=== PATIENT | female | born 1955 | race Caucasian/White ===

== ENCOUNTER 2022-08-25 08:31 | Observation (INO) ==
--- NOTE | 2022-07-21 09:40 | PAT Medication Instructions ---
Medication Instructions Date of Service July 21, 2022 Home Medications Medication Instructions Recorded levothyroxine 50 mcg capsule 50 mcg PO DAILY #30 caps 05/05/22 levothyroxine 50 mcg capsule 50 mcg PO DAILY acetaminophen 325 mg capsule (Tylenol) 325 mg PO QID PRN Pain ibuprofen 200 mg capsule 200 mg PO Q6H PRN Pain rosuvastatin 10 mg tablet 10 mg PO DAILY ascorbic acid (vitamin C) 100 mg tablet (Vitamin C) 100 mg PO QAM Collagen Plus Vitamin C 1 cap PO QAM calcium 220 mg capsule 220 mg PO QAM multivitamin 1 tab PO QAM ASK your surgeon for instructions ibuprofen 200 mg capsule 200 mg PO Q6H PRN Pain STOP taking 2 weeks before surgery (or as soon as possible if surgery is within 2 weeks) Collagen Plus Vitamin C 1 cap PO QAM DO NOT take the morning of surgery ascorbic acid (vitamin C) 100 mg tablet (Vitamin C) 100 mg PO QAM calcium 220 mg capsule 220 mg PO QAM multivitamin 1 tab PO QAM Take morning of surgery With a small sip of water, OTHERWISE NOTHING TO EAT OR DRINK AFTER MIDNIGHT: levothyroxine 50 mcg capsule 50 mcg PO DAILY acetaminophen 325 mg capsule (Tylenol) 325 mg PO QID PRN Pain (if needed) rosuvastatin 10 mg tablet 10 mg PO DAILY Take evening before surgery acetaminophen 325 mg capsule (Tylenol) 325 mg PO QID PRN Pain (if needed) Other Notes If you have any questions please call us at [phone] or [phone] or [phone] or [phone]
--- NOTE | 2022-07-23 14:12 | Anesthesiology Consultation ---
Date of Service July 23, 2022 Assessment & Plan (1) Encounter for pre-operative examination: - COVID screening: Per assessment on 07/23: No known COVID-19 positive contacts. Travel screen negative. At surgeon discretion if preop Covid testing being done. - Outpatient joint assessment: Pt currently scheduled for inpatient pathway. If surgeon requests review for outpatient joint pathway, patient is an acceptable candidate for outpatient joint program from anesthesia standpoint pending surgeon's office assessment that patient is motivated, has good support and completes [facility] Program preop requirements. Chart Review Chart Review: Acceptable Risk for Surgery and Patient seen in Pre Admission Testing History Surgery Operation Date: 08/25/22 07:30 Proposed Procedures p Left Total Knee Arthroplasty - Onesimo Yee, Height/Weight Height: 5 ft 3 in Weight: 73.2 kg Allergies Allergy/AdvReac Type Severity Reaction Status Date / Time Penicillins Allergy Intermediate RASH Verified 07/17/22 11:16 Medications Home Medications Medication Instructions Recorded Confirmed Last Taken levothyroxine 50 mcg capsule 50 mcg PO DAILY #30 caps 05/05/22 07/17/22 Unknown acetaminophen 325 mg capsule 325 mg PO QID PRN Pain 07/10/22 07/17/22 Unknown (Tylenol) ibuprofen 200 mg capsule 200 mg PO Q6H PRN Pain 07/10/22 07/17/22 Unknown rosuvastatin 10 mg tablet 10 mg PO DAILY 07/10/22 07/17/22 Unknown ascorbic acid (vitamin C) 100 mg 100 mg PO QAM 07/17/22 07/17/22 Unknown tablet (Vitamin C) ascorbic acid 125 mg-collagen, 1 cap PO QAM 07/17/22 07/17/22 Unknown hydrolyzed 740 mg capsule (Collagen Plus Vitamin C) calcium 220 mg capsule 220 mg PO QAM 07/17/22 07/17/22 Unknown multivitamin 1 tab PO QAM 07/17/22 07/17/22 Unknown Past Medical History Medical History Familial tremor faint; right hand History of COVID-19 04/2021- cough, fever, fatigue, congestion > resolved History of frequent URI No recent issues Hyperlipidemia Hypothyroidism Osteoarthritis of left knee Exercise / Class Metabolic Activity II 4-5 Yardwork/Stairs/Walk up hill Past Family History Family History Other No family history of adverse response to anesthesia Past Surgical History Surgical History History of Hx of cholecystectomy Hx of colonoscopy Hx of tubal ligation Past Anesthesia History No Family Hx of Anesthesia Complications and Other (left > right sided pain with ()) History of PONV No Hx of PONV and Hx of Motion Sickness (rare) Social History Smoking Status: Never smoker Do You Dip or Chew Tobacco: No Hx Alcohol Use: No Hx Substance Use: No substance use type: does not use Review of Systems Chronic sinus drainage- unchanged. Patient denies chest pain, shortness of breath, dyspnea on exertion, fever, chills, cough, wheezing, palpitations. Physical Exam Vital Signs VITALS BP 106/58 P 98 TEMP 99.1 SP02 96%RA RESP 16 PHYSICAL Full cervical extension range of motion. Full TMJ range of motion. TMD 3 finger breaths Mallampati Score 2 Dentition: intact Lungs: clear throughout to auscultation Cardiac: regular rate and rhythm, no murmurs noted Spine: normal Carotid arteries: negative bruit Extremities: no edema Lab Results Anesthesia Preop Results Results Anesthesia Widget: WBC 6.66 K/ul (4.8-10.8) 07/23/22 Hgb 16.8 g/dl (12.0-16.0) H 07/23/22 Hct 46.3 % (34.1-44.9) H 07/23/22 Plt 310 K/uL (130-400) 07/23/22 Na 140 mmol/L (136-145) 07/23/22 K 4.0 mmol/L (3.5-5.1) 07/23/22 Cl 107 mmol/L (98-107) 07/23/22 CO2 29 mmol/L (21-32) 07/23/22 BUN 12 mg/dl (6-23) 07/23/22 Creat 0.69 mg/dl (0.6-1.2) 07/23/22 Glucose Level 102 mg/dl (70-99(Fasting)) H 07/23/22 PT 10.6 Seconds (9.0-12.0) 07/23/22 PTT 25.4 Seconds (21.0-31.0) 07/23/22 INR 1.0 (0.9-1.1) 07/23/22 Blood Type O Positive 07/23/22 Antibody Screen NEGATIVE 07/23/22 Testing Electrocardiogram Date: 07/23/22 Findings: + NSR @ (76) Chest X-Ray Date: 07/23/22 FINDINGS: No lines and tubes are seen. The cardiomediastinal silhouette is normal. The lungs are clear. No evidence of pleural effusion or pneumothorax. Degenerative changes are seen in the spine. IMPRESSION: No acute chest disease. Stress Test Date: 11/15/18 Type: exercise Negative exercise stress echo/ECG for ischemia at 106% MPHR. Poor exercise tolerance. 4.7 METS. EchoEF 65-70%. No regional motion abnormality. No LVH. No significant valvular disease. COVID-19 Risk Screen Screening Information COVID-19 Screen Date: 07/23/22 Exposure 21 Days Family/Household +COVID Last 21 Days: No Exposure 10 Days Any COVID Exposure Last 10 Days: No Symptoms Last 10 Days Experienced COVID Sx Last 10 Days: No + COVID 0-90 Days COVID + in Last 0-90 Days: No
--- NOTE | 2022-08-25 06:28 | History & Physical Report ---
Date of Service August 25, 2022 Assessment & Plan (1) Osteoarthritis of left knee: We will proceed with a left total knee arthroplasty. Postoperatively she will be in our outpatient joint protocol. She will be discharged home on oral pain medications and aspirin for DVT prophylaxis. [facility]. History of Present Illness Chief Complaint: Osteoarthritis of the left knee. Primary Care Provider: YOANA Lira Kinjal is a pleasant 67-year-old female who is been doing with chronic increasing left knee pain. X-rays and clinical examination have been diagnostic for advanced osteoarthritis of the left knee. After failing conservative treatment, she has elected proceed with a left total knee arthroplasty.. Allergies Allergy/AdvReac Type Severity Reaction Status Date / Time Penicillins Allergy Intermediate RASH Verified 07/17/22 11:16 Home Medications Medication Instructions Recorded Confirmed Type levothyroxine 50 mcg capsule 50 mcg PO DAILY #30 caps 05/05/22 07/17/22 Rx acetaminophen 325 mg capsule 325 mg PO QID PRN Pain 07/10/22 07/17/22 History (Tylenol) ibuprofen 200 mg capsule 200 mg PO Q6H PRN Pain 07/10/22 07/17/22 History ascorbic acid (vitamin C) 100 mg 100 mg PO QAM 07/17/22 07/17/22 History tablet (Vitamin C) ascorbic acid 125 mg-collagen, 1 cap PO QAM 07/17/22 07/17/22 History hydrolyzed 740 mg capsule (Collagen Plus Vitamin C) calcium 220 mg capsule 220 mg PO QAM 07/17/22 07/17/22 History multivitamin 1 tab PO QAM 07/17/22 07/17/22 History rosuvastatin 10 mg tablet 10 mg PO DAILY #30 tabs 07/30/22 Rx Past Med/Surg History Medical History Familial tremor faint; right hand History of COVID-19 04/2021- cough, fever, fatigue, congestion > resolved History of frequent URI No recent issues Hyperlipidemia Hypothyroidism Osteoarthritis of left knee Surgical History History of Hx of cholecystectomy Hx of colonoscopy Hx of tubal ligation Family History Other No family history of adverse response to anesthesia Social History Smoking Status: Never smoker Second Hand Exposure: No; Hx Alcohol Use: No Hx Substance Use: No Preferred Language: American Communication Ability: Effective Visual Impairment: Limited Hearing Ability: Normal Data Storage Specialist Required: No Beliefs That Will Affect Care: None marital status: Current Living Situation: Spouse current occupational status: retired How many Children do You have: 5 Feels Safe at Home: Yes Childhood Exposure to Second-Hand Smoke: Yes caffeine: Yes during the past year weight has: remained stable Dental Care, Regularly: No Physical Activity Frequency: Daily Seatbelt Use: always Sunscreen Use: Yes Do you think of yourself as: straight/heterosexual Gender Identity: Female Assistive Devices: Glasses Review of Systems All systems reviewed & are unremarkable except as noted in HPI & below. Physical Exam On physical examination of the left knee, she has slight valgus deformity. She has tenderness palpation over the lateral joint line and over the distal lateral femoral condyle.. Constitutional WD/WN, vitals as above Eyes PERRL, conjunctivae normal, anicteric sclerae ENMT external ear and nose normal, oropharynx normal Neck trachea midline, no thyromegaly Respiratory normal respiratory effort, lungs clear to auscultation Cardiovascular RRR, no murmur, no edema Gastrointestinal (Abdomen) normal bowel sounds, soft, nontender, no hepatosplenomegaly Skin no rashes, warm and dry Psychiatric A+Ox3, euthymic affect Results & Data Results & Data Laboratory Results . Diagnostic Findings X-rays of the left knee show advanced osteoarthritis with some joint space narrowing and osteophyte formation. Most involved the lateral compartment.. PG Care Time/CCT Total # of Minutes Spent Total Time Spent with Patient: Total time spent is greater than 50% in coordination of care (as documented) at patient's floor/unit and/or counseling patient: Coding Level of Care Code None Diagnoses Osteoarthritis of left knee M17.12
[~2022-08-25 08:31] MED LIST: ACETAMINOPHEN 500 MG TAB PO SCH; ALLERGY Noted to ORDERED Medication SCH; BUPIVACAINE 0.5 % 5 MG/1 ML PF 10ML VIAL ONE; FAMOTIDINE 20 MG TAB PO SCH; GABAPENTIN 300 MG CAP PO SCH; Ketorolac (*for OR use only*) 30 MG, dexAMETHasone 4 MG, KETAMINE HCL (**OR use only) 1... INFIL SCH; LR 500ML BOLUS, THEN 15ML/HR IV SCH; LR 60ML/HR IV SCH; ROPIVACAINE 0.5% 5 MG/ML 30 ML VIAL ONE; TRANEXAMIC ACID 1,000 MG **IV Intra-op IV SCH; TRANEXAMIC ACID 1,000 MG **IV Pre-op IV SCH; ceFAZolin 2000MG 2,000 MG/15 ML SYR IV SCH; dexAMETHasone 4 MG TAB PO SCH
[2022-08-25] MEDS ORDERED: MIDAZOLAM HCL 1 MG/ML 2ML VIAL ONE (09:40)
[2022-08-25] MEDS ORDERED: PROPOFOL IV EMULSION 10 MG/ML 20 ML VIAL IV ONE ×2 (10:22)
[2022-08-25] MEDS ORDERED: ORTHO JOINT ANESTHETIC ONE (10:47)
[2022-08-25] MEDS ORDERED: ceFAZolin 2,000 MG/15 ML IV PUSH IV ONE (10:49)
[2022-08-25] MEDS ORDERED: fentaNYL citrate 100 MCG/2 ML VIAL IV PRN (10:51)
[2022-08-25] MEDS ORDERED: ePHEDrine sulfate 50 MG/ML AMP IV PRN (10:51)
[2022-08-25] MEDS ORDERED: ATROPINE SULFATE 0.1 MG/ML 10ML SYR IV PRN (10:51)
[2022-08-25] MEDS ORDERED: HYDROmorphone INJ 2 MG/ML SYR/VIAL IV PRN (10:51)
[2022-08-25] MEDS ORDERED: PROMETHAZINE HCL 12.5 MG in SODIUM CHLORIDE 0.9% 50 ML IV PRN (10:51)
[2022-08-25] MEDS ORDERED: ONDANSETRON INJ 2 MG/ML 2 ML VIAL IV PRN ×2 (10:51→13:34)
[2022-08-25] MEDS ORDERED: Nursing to Pharmacy Communication SCH (11:00)
[2022-08-25] MEDS ORDERED: ePHEDrine sulfate 50 MG/ML SYR ONE (12:06)
--- NOTE | 2022-08-25 12:14 | Operative Report ---
PG Post Operative Report Pre & Post Diagnosis Operation Date: 08/25/22 10:40 Pre-Op Diagnosis: Left Knee Degenerative Joint Disease Post-Op Diagnosis: Left Knee Degenerative Joint Disease I identified the patient and participated in the time-out.: Yes Procedure Operation Date: 08/25/22 10:40 Actual Procedures p Left Total Knee Arthroplasty, Cemented(Left) - Onesimo Yee DO Surgeon Onesimo Yee DO Refrigeration Lead Onesimo Livingston PA-C Estimated Blood Loss 50 Findings Consistent with Post-Op Diagnosis Specimens Left femoral and tibial bone Description of Procedure Implants used: I used a Ethan Persona total knee arthroplasty system with a size 7 standard PS femur, D tibia, 28 oval patella, and a size 10 CPS polyethylene bearing. All components were cemented in place with Biomet cement. Kinjal arrived [facility] for the above procedure. She was seen in the preoperative holding area and the operative extremity was identified and signed. She was given a preoperative antibiotic, TXA, a spinal anesthetic and an adductor nerve block. She was taken back to the operating room and laid on the table in supine position. She was given basic sedation. The operative knee was then prepped and draped in sterile fashion. A timeout was done, and the patient and the operative extremity was properly identified. A midline incision was made directly over the patella. Dissection was taken down to the extensor mechanism. A midvastus arthrotomy was used. The medial retinaculum was released and the fat pad was mostly excised. The knee was flexed and the ACL, PCL, and meniscus were removed. A drill was sent down the center of the femoral canal followed by an intramedullary carolin. Off that carolin a distal femoral cutting block was placed. 9 mm was resected off the distal femur at 5 of valgus. A posterior referencing AP sizing guide was then placed on the distal femur. The femur measured to be a size 7. 2 drill holes were placed in 3 of external rotation. A 4-in-1 cutting block was then impacted into place. Anterior, posterior, and chamfer cuts were then made. The proximal tibia was then exposed. An external tibial alignment guide was placed. A tibial cut guide was then anchored in place and the proximal tibia was then resected. The posterior aspect of the knee was then ope aleta up and any additional meniscus fragments and osteophytes were removed. The tibia measured to be a size D. The tibial plate was then placed in the appropriate rotation and the tibia was drilled and punched. Trial components were then placed. I used a size 10 CPS polyethylene insert. The knee was brought through a full range of motion and felt to be stable. The peg holes for the femoral component were then drilled. The patella was then everted and 9 mm was resected off the posterior aspect of the patella. The patella measured to be a size 28 oval. 3 peg holes were then drilled. A trial patella was placed. The knee was once again brought through a full range of motion and felt to be stable. Trial components were then removed. The surrounding soft tissues were injected with 100 cc of an orthopedic pain control cocktail. All components were then cemented into place with Biomet cement. The final polyethylene insert was then snapped into place. Once cement was dry the tourniquet was deflated. Hemostasis was obtained. A dilute betadyne lavage was then done for 3 minutes. The joint was then irrigated with normal saline solution. The midvastus arthrotomy was then closed with #1 Vicryl suture. The skin was closed with 2-0 Vicryl, 3-0V lock suture, and mendez. A soft compressive dressing was placed. She was then transferred to a hospital bed and taken to the postanesthesia care unit in stable condition. She tolerated the procedure well. Onesimo Livingston PA-C, was present for the entire procedure. He was critical for patient positioning, prepping, draping, retraction exposure, wound closure and application of sterile dressing. I attest to the content of the Intraoperative Record and any orders documented therein. Any exceptions are noted below.
[2022-08-25] MEDS ORDERED: oxyCODONE/ACETAMINOPHEN 5mg/325mg TAB PO PRN (12:38)
--- NOTE | 2022-08-25 12:58 | XRay Report ---
LEFT KNEE 2 VIEWS History: Left total knee arthroplasty. Degenerative arthritis. Postop. FINDINGS: The patient is status post a left total knee arthroplasty. The hardware is intact. No fract ure or dislocation. Skin mendez are in place. IMPRESSION: Left total knee arthroplasty. No evidence for hardware complication. ACT 112: Negative or not required by law. Electronically signed by: Tylor Oconnor M.D. 08/25/2022 12:57 PM
[2022-08-25] MEDS ORDERED: MAGNESIUM HYDROXIDE SUSP 30 ML UDC PO PRN (13:34)
[2022-08-25] MEDS ORDERED: HYDROmorphone INJ 0.5 MG/0.5 ML SYR IV PRN (13:34)
[2022-08-25] MEDS ORDERED: bisacodyL 10 MG SUPP PR PRN (13:34)
[2022-08-25] MEDS ORDERED: METOCLOPRAMIDE HCL INJ 5 MG/ML 2 ML VIAL IV PRN (13:34)
[2022-08-25] MEDS ORDERED: NALOXONE HCL 0.4 MG/1 ML VIAL/CARP IV PRN (13:34)
[2022-08-25] MEDS: SODIUM CHLORIDE 0.9% 1000ML 1,000 ML IV SCH (14:58)
[2022-08-25] MEDS: KETOROLAC 30 MG/ML VIAL IV SCH ×2 (14:59→20:50)
[2022-08-25] MEDS: ACETAMINOPHEN 500 MG TAB PO SCH ×2 (14:59→20:50)
[2022-08-25] MEDS: ceFAZolin 2000MG 2,000 MG/15 ML SYR IV SCH (18:18)
[2022-08-25] MEDS: ASPIRIN 81 MG ECTAB PO SCH (20:49)
[2022-08-25] MEDS: DOCUSATE SODIUM 100 MG CAP PO SCH (20:49)
[2022-08-25] MEDS ORDERED: SENNA 8.6 MG TAB PO SCH (21:00)
[2022-08-26] MEDS: oxyCODONE HCL IR 5 MG TAB (IMMEDIATE RELEASE) PO PRN ×2 (01:14→08:39)
[2022-08-26] MEDS: SODIUM CHLORIDE 0.9% 1000ML 1,000 ML IV SCH (01:20)
[2022-08-26] MEDS: KETOROLAC 30 MG/ML VIAL IV SCH ×2 (04:11→08:39)
[2022-08-26] MEDS: ceFAZolin 2000MG 2,000 MG/15 ML SYR IV SCH (04:11)
[2022-08-26] MEDS: ACETAMINOPHEN 500 MG TAB PO SCH (06:20)
--- NOTE | 2022-08-26 06:55 | Orthopedic Progress Note ---
Date of Service August 26, 2022 Assessment & Plan (1) Status post left knee replacement: Overall she is doing fairly well. She is not having much pain in the left knee. She will be seen by physical therapy today for ambulation and range of motion exercises. She is on aspirin for DVT prophylaxis. She can be discharged home later today. She will follow-up with orthopedics in 2 weeks. Sage Layton was seen and examined at bedside this morning. Overall she is doing fairly well. She is not having much pain in the left knee. She has been up and ambulating to the bathroom. She has no complaints.. Review of Systems All systems reviewed & are unremarkable except as noted in HPI & below. Physical Exam On physical examination of the left knee, the dressing is clean and dry. Her leg is out full extension. She has active dorsiflexion plantarflexion of her left ankle.. Results & Data Results & Data Laboratory Results . Diagnostic Findings Postoperative x-rays of the left knee show the prosthesis to be in anatomic alignment without any evidence of fracture, screws, or loosening.. PG Care Time/CCT Total # of Minutes Spent Total Time Spent with Patient: Total time spent is greater than 50% in coordination of care (as documented) at patient's floor/unit and/or counseling patient: Coding Level of Care Code 63937 Post Operative Follow-Up Diagnoses Status post left knee replacement Z96.652
--- NOTE | 2022-08-26 06:56 | Discharge Summary ---
Date of Service August 26, 2022 Admission HPI (Per Admitting) Kinjal is a pleasant 67-year-old female who is been doing with chronic increasing left knee pain. X-rays and clinical examination have been diagnostic for advanced osteoarthritis of the left knee. After failing conservative treatment, she has elected proceed with a left total knee arthroplasty.. Admission Exam (Per Admitting) On physical examination of the left knee, she has slight valgus deformity. She has tenderness palpation over the lateral joint line and over the distal lateral femoral condyle.. Principal Diagnosis Same as "Discharge Diagnosis" noted below under Discharge Instructions. Discharge Exam On physical examination of the left knee, the dressing is clean and dry. Her leg is out full extension. She has active dorsiflexion plantarflexion of her left ankle.. Discharge Data Procedures Performed Operation Date: 08/25/22 10:40 Actual Procedures p Left Total Knee Arthroplasty, Cemented(Left) - Onesimo Yee DO Ordered Studies 08/25/22 05:00 US - OR guided needle placemen Routine Hospital Course (1) Status post left knee replacement: On August 25, 2022 Kinjal arrived at [facility] and underwent a left knee replacement without complication. She had a spinal anesthetic. Postoperatively she was started on aspirin for DVT prophylaxis and transferred to the general orthopedic floors. Her hospital course was uneventful. On postop day #1, her vital signs were stable and her pain was well controlled. She was able to participate well with physical therapy doing ambulation and range of motion exercises. She was then discharged home. She will follow-up with orthopedics in 2 weeks. PG Care Time/CCT Total # of Minutes Spent Total Time Spent with Patient: Total time spent is greater than 50% in coordination of care (as documented) at patient's floor/unit and/or counseling patient: Discharge Plan Discharge Items Patient Disposition: Home - Home Health Services Reason For Visit: Left Knee Degenerative Joint Disease Discharge Diagnosis: same as above Activity: Per Instructions section Non-emergency contact: Surgeon Call non-emergency contact if: your temperature is above 101.5, your wound has increased redness and your wound has increased drainage Follow-up/Referrals: Marifer Altamirano CRNP [Primary Care Provider] - Diet: Regular Addtl Attending Provider Instructions: Activity and Therapy Recommendations: * If you are using [facility] then therapy will be provided at your home until they feel you have accomplished all of your goals. * If you are using [facility] then Physical Therapy will be provided until they feel you are ready to start Outpatient Physical Therapy. * If you are not using home therapy then Outpatient Physical Therapy should start about 3-5 days from your day of surgery. Therapy will last about 6-10 weeks * It is important not to put a pillow under your knee when you are relaxing or sleeping. It is just as important to make sure you are getting your knee perfectly straight as it is to regain your knee bend. * You were shown a series of exercises in the hospital. Do these exercises three times each day including the exercises you were shown in physical therapy. * Get up and walk several times each day. For the first four weeks, try not to stand or walk for more than one hour at a time. If you do stand or walk for more than one hour, you will not hurt anything, but your leg will likely swell. * As you feel comfortable, you may change from the walker or crutches to a cane and then to independent walking. Medications: * Narcotic You will likely be sent home from the hospital with a prescription for the narcotic pain medication that worked best throughout your stay. * Aspirin Most patients will be required to take Aspirin 81mg twice a day for 6 weeks after surgery. This is obtained [id number] and a prescription is not necessary. * Other medications may be prescribed for specific circumstances. If you have any questions, please call the office at . * Resume previous home medications unless otherwise instructed TEDs/Elastic Stockings: The white elastic stockings help limit swelling and prevent blood clots from forming in your legs.~ The more you wear them, the more they work. Wear them for six weeks. Dressing Care: The dressing can be changed after physical therapy on postop day #1. Daily dry dressing changes for a few days, especially if the incision is still draining some. If the incision is not draining then you may leave the mendez open to air. If there is a little bit of drainage or if the mendez are getting stuck on your clothing then cover the incision with a dry dressing. The mendez will be removed at your 2 week follow-up appointment. Showering: You may shower 5 days from the day of surgery as long as the incision is no longer draining. You may shower with the mendez exposed. Let soapy water run over the mendez and pat them dry. Do not scrub or soak the incision. Things To Watch For: * Drainage from the incision site that occurs more than one week after your surgery. * Increased redness at the incision site. * Fever above 102 degrees Fahrenheit. * Unusual chest pain or shortness of breath. * Call [facility] at with any of the above problems Follow-Up Visit: Follow-up with Dr. Yee's PA (Onesimo Livingston) 2-3 weeks after your day of surgery. He will remove your mendez and answer any questions. If you have any additional questions or concerns, Dr Yee is usually in the office at the same time and will be available An appointment was probably scheduled when you signed-up for surgery in the office. If you have any questions call Office Instructions: More detailed instructions as well as Frequently Asked Questions were provided in a folder by our office when you signed-up for surgery. Please review these instructions when you get home. If you have any further questions or concerns, please feel free to call the office at [phone] Pending Studies at Discharge: No Stand-Alone Forms: [facility] [employer], Smoking Cessation Medications and DC Order Prescriptions: New celecoxib [Celebrex] 200 mg capsule 200 mg PO Q12H PRN (Reason: pain) Qty: 60 0RF oxycodone-acetaminophen [Percocet] 5-325 mg tablet 1 tab PO Q6H PRN (Reason: pain) Qty: 30 0RF aspirin [Adult Aspirin Regimen] 81 mg tablet,delayed release (DR/EC) 81 mg PO BID Qty: 84 0RF Continued levothyroxine 50 mcg capsule 50 mcg PO DAILY Qty: 30 11RF rosuvastatin 10 mg tablet 10 mg PO DAILY Qty: 30 5RF multivitamin Tablet 1 tab PO QAM Vitamin C 100 mg Tablet 100 mg PO QAM calcium 220 mg Capsule 220 mg PO QAM Collagen Plus Vitamin C 125-740 mg Capsule 1 cap PO QAM Discontinued acetaminophen [Tylenol] 325 mg capsule 325 mg PO QID PRN (Reason: Pain) ibuprofen 200 mg capsule 200 mg PO Q6H PRN (Reason: Pain) Admission Data Admit Date/Time: 08/25/22 12:52 Attending Provider: Onesimo Yee Admit Provider: Onesimo Yee Primary Care Provider: Marifer Altamirano
[2022-08-26] MEDS ORDERED: dexAMETHasone 4 MG TAB PO SCH (08:00)
[2022-08-26] MEDS: ASPIRIN 81 MG ECTAB PO SCH (08:39)
[2022-08-26] MEDS: DOCUSATE SODIUM 100 MG CAP PO SCH (08:39)
[2022-08-26] MEDS ORDERED: ROSUVASTATIN CALCIUM 10 MG TAB PO SCH (09:00)
[2022-08-26] MEDS ORDERED: MULTIVITAMIN TAB PO SCH (09:00)
== END 2022-08-26 13:40 | disposition home health service (06) ==
LOC: 3W 08:31 → ASU 08:31

== ENCOUNTER 2023-02-06 08:34 | Observation (INO) ==
--- NOTE | 2023-01-09 11:00 | PAT Medication Instructions ---
Medication Instructions Date of Service January 09, 2023 Home Medications ascorbic acid (vitamin C) 100 mg tablet (Vitamin C) 100 mg PO QAM ascorbic acid 125 mg-collagen, hydrolyzed 740 mg capsule (Collagen Plus Vitamin C) 1 cap PO QAM calcium 220 mg capsule 220 mg PO QAM multivitamin 1 tab PO QAM levothyroxine 50 mcg capsule 50 mcg PO QAM rosuvastatin 10 mg tablet 10 mg PO HS DO NOT take the morning of surgery ascorbic acid (vitamin C) 100 mg tablet (Vitamin C) 100 mg PO QAM ascorbic acid 125 mg-collagen, hydrolyzed 740 mg capsule (Collagen Plus Vitamin C) 1 cap PO QAM calcium 220 mg capsule 220 mg PO QAM multivitamin 1 tab PO QAM Take morning of surgery With a small sip of water, OTHERWISE NOTHING TO EAT OR DRINK AFTER MIDNIGHT: levothyroxine 50 mcg capsule 50 mcg PO QAM Take evening before surgery rosuvastatin 10 mg tablet 10 mg PO HS Other Notes If you have any questions please call us at [phone] or [phone] or [phone] or [phone]
--- NOTE | 2023-01-14 12:56 | Anesthesiology Consultation ---
Date of Service January 14, 2023 Assessment & Plan (1) Encounter for pre-operative examination: - COVID screening: Per assessment on 01/14: No known COVID-19 positive contacts or current COVID-19 related symptoms. Travel screen- return from [place], [place] on 01/11. - Outpatient joint assessment: Pt currently scheduled for inpatient pathway. If surgeon requests review for outpatient joint pathway, patient is an acceptable candidate for outpatient joint program from anesthesia standpoint. - S/P Left TKA (08/25/22): SAB at L3/4 (x1 attempt) + PNB at [facility] Chart Review Chart Review: Acceptable Risk for Surgery and Patient seen in Pre Admission Testing Teaching & Discussion Pre-Anesthesia Teaching/Discussion Notes: Instructed NPO after midnight before surgery,except medications with 15 cc of water. Medication instructions provided according to the PAT guidelines. History Surgery Operation Date: 02/06/23 08:10 Proposed Procedures p Right Reverse Total Shoulder Arthroplasty - Onesimo Yee DO Height/Weight Height: 5 ft 3 in Weight: 73.4 kg Allergies Allergy/AdvReac Type Severity Reaction Status Date / Time Penicillins Allergy Intermediate Rash Verified 01/14/23 12:56 Medications Home Medications Medication Instructions Recorded Confirmed Last Taken ascorbic acid (vitamin C) 100 mg 100 mg PO QAM 07/17/22 01/06/23 08/23/22 tablet (Vitamin C) ascorbic acid 125 mg-collagen, 1 cap PO QAM 07/17/22 01/06/23 08/11/22 hydrolyzed 740 mg capsule (Collagen Plus Vitamin C) calcium 220 mg capsule 220 mg PO QAM 07/17/22 01/06/23 08/18/22 multivitamin 1 tab PO QAM 07/17/22 01/06/23 08/23/22 levothyroxine 50 mcg capsule 50 mcg PO QAM 01/06/23 01/06/23 Unknown rosuvastatin 10 mg tablet 10 mg PO HS 01/06/23 01/06/23 Unknown doxycycline monohydrate 100 mg 100 mg PO ONCE #1 cap 01/12/23 Unknown capsule Past Medical History Medical History Familial tremor faint; right hand History of COVID-19 04/2021- cough, fever, fatigue, congestion > resolved Hyperlipidemia Hypothyroidism Exercise / Class Metabolic Activity II 4-5 Yardwork/Stairs/Walk up hill Past Family History Family History Other No family history of adverse response to anesthesia Past Surgical History Surgical History History of Hx of cholecystectomy Hx of colonoscopy Hx of tubal ligation Status post left knee replacement Left TKA (08/25/22): SAB at L3/4 (x1 attempt) + PNB at [facility] Past Anesthesia History No Hx of Anesthesia Complications and No Family Hx of Anesthesia Complications History of PONV No Hx of PONV and No Hx of Motion Sickness Social History Smoking Status: Never smoker Do You Dip or Chew Tobacco: No Hx Alcohol Use: No Hx Substance Use: No substance use type: does not use Review of Systems Chronic cough (Post nasal drip/allergy related, unchanged) Patient denies chest pain, shortness of breath, dyspnea on exertion, fever, chills, wheezing, palpitations. Physical Exam Vital Signs VITALS BP 114/71 P 72 TEMP 98.2 SP02 97%RA RESP 18 PHYSICAL Full cervical extension range of motion. Full TMJ range of motion. TMD 4 finger breaths Mallampati Score 1 Dentition: intact, + cap Lungs: clear throughout to auscultation Cardiac: regular rate and rhythm, no murmurs noted Spine: normal Carotid arteries: negative bruit Extremities: no LE edema Lab Results Anesthesia Preop Results Results Anesthesia Widget: WBC 4.01 K/ul (4.8-10.8) L 01/14/23 Hgb 15.1 g/dl (12.0-16.0) 01/14/23 Hct 42.9 % (37.0-47.0) 01/14/23 Plt 255 K/uL (130-400) 01/14/23 Na 140 mmol/L (136-145) 01/14/23 K 4.2 mmol/L (3.5-5.1) 01/14/23 Cl 104 mmol/L (98-107) 01/14/23 CO2 31 mmol/L (21-32) 01/14/23 BUN 11 mg/dl (6-23) 01/14/23 Creat 0.76 mg/dl (0.6-1.2) 01/14/23 Glucose Level 82 mg/dl (70-99(Fasting)) 01/14/23 PT 10.3 Seconds (9.0-12.0) 01/14/23 PTT 26.3 Seconds (21.0-31.0) 01/14/23 INR 0.9 (0.9-1.1) 01/14/23 Blood Type O Positive 01/14/23 Antibody Screen NEGATIVE 01/14/23 Testing Electrocardiogram Date: 07/23/22 Findings: + NSR @ (76) Chest X-Ray Date: 07/23/22 FINDINGS: No lines and tubes are seen. The cardiomediastinal silhouette is normal. The lungs are clear. No evidence of pleural effusion or pneumothorax. Degenerative changes are seen in the spine. IMPRESSION: No acute chest disease. Stress Test Date: 11/15/18 Type: exercise Negative exercise stress echo/ECG for ischemia at 106% MPHR. Poor exercise tolerance. 4.7 METS. EchoEF 65-70%. No regional motion abnormality. No LVH. No significant valvular disease. COVID-19 Risk Screen Screening Information COVID-19 Screen Date: 01/14/23 Exposure 21 Days Family/Household +COVID Last 21 Days: No Exposure 10 Days Any COVID Exposure Last 10 Days: No Symptoms Last 10 Days Experienced COVID Sx Last 10 Days: No + COVID 0-90 Days COVID + in Last 0-90 Days: No
[~2023-02-06 08:34] MED LIST changes: -ALLERGY Noted to ORDERED Medication SCH; -Ketorolac (*for OR use only*) 30 MG, dexAMETHasone 4 MG, KETAMINE HCL (**OR use only) 1... INFIL SCH; +LR 15ML/HR IV SCH; -LR 500ML BOLUS, THEN 15ML/HR IV SCH; +ORTHO JOINT MIX INFIL SCH; -ROPIVACAINE 0.5% 5 MG/ML 30 ML VIAL ONE
[2023-02-06] MEDS ORDERED: fentaNYL citrate PF 100 MCG/2 ML VIAL ONE ×2 (09:02→11:08)
[2023-02-06] MEDS ORDERED: ONDANSETRON INJ 2 MG/ML 2 ML VIAL ONE (09:02)
[2023-02-06] MEDS ORDERED: PROPOFOL IV EMULSION 10 MG/ML 20 ML VIAL IV ONE ×2 (09:02→11:06)
[2023-02-06] MEDS ORDERED: MIDAZOLAM HCL 1 MG/ML 2ML VIAL ONE (09:02)
[2023-02-06] MEDS ORDERED: LIDOCAINE 2% 2 ML VIAL/AMP(20MG/ML) INFIL ONE (09:02)
[2023-02-06] MEDS ORDERED: DEXAMETHASONE SOD INJ 4 MG/ML VIAL ONE (09:02)
[2023-02-06] MEDS ORDERED: ORTHO JOINT ANESTHETIC ONE (09:22)
--- NOTE | 2023-02-06 10:04 | History & Physical Bridge Note ---
Date of Service February 06, 2023 History & Physical Bridge Note I have examined the patient, reviewed the History & Physical and in the interval since the performance of the History & Physical I have noted the following changes of clinical significance: no changes noted
[2023-02-06] MEDS ORDERED: ePHEDrine sulfate 50 MG/ML AMP ONE (10:36)
--- NOTE | 2023-02-06 11:19 | Operative Report ---
PG Post Operative Report Pre & Post Diagnosis Operation Date: 02/06/23 10:00 Pre-Op Diagnosis: Cuff tear arthropathy of the right shoulder Post-Op Diagnosis: Cuff tear arthropathy of the right shoulder I identified the patient and participated in the time-out.: Yes Procedure Operation Date: 02/06/23 10:00 Actual Procedures p Right Reverse Total Shoulder Arthroplasty(Right) - Onesimo Yee DO Surgeon Onesimo Yee DO Corporate Legal Secretary Onesimo Livingston PA-C Estimated Blood Loss 200 Findings Consistent with Post-Op Diagnosis Specimens none Description of Procedure Implants used: I used a [employer]omet Comprehensive reverse total shoulder arthroplasty system with a size 11 press fit micro humeral stem, a +6 offset humeral tray and a standard humeral bearing, a 25 mm small augment baseplate with a 6.5 mm central screw and superior and inferior locking screws, and a size 36 mm eccentric glenosphere. Kinjal arrived at [facility] for the above procedure. She was seen in the preoperative holding area and the operative extremity was identified and signed. She was given a preoperative antibiotic, TXA, and an interscalene nerve block. She was taken back to the operating room, laid on table in supine position, and put under general anesthesia. She was then put into the beachchair position. The shoulder was then prepped and draped in sterile fashion. A timeout was done and the patient and the operative extremity was properly identified. A deltopectoral approach was used. Dissection was taken down through the fascia and the deltoid was retracted laterally and the conjoined tendon was retracted medially. The anterior shoulder was exposed. The biceps tendon was already torn. The subscapularis was then directly released off the lesser tuberosity with a peel technique. The inferior capsule was released and the humeral head was dislocated. A canal finding reamer was sent down the center of the humeral canal. Sequential reaming up to a size 11 reamer was done. Off that reamer, a proximal humeral resection guide was placed. The proximal humerus was resected at 135 of inclination and 25 of retroversion. Osteophytes were then removed and the glenoid was exposed. Time was spent doing a complete capsular and labral release. The glenoid guide was then placed in the inferior aspect of the glenoid. A 3.2 mm Steinmann pin was then placed into the glenoid vault at 10 of inclination. The glenoid baseplate was then reamed. The final size 25 mm small augment baseplate was then impacted in the place. A 6.5 mm central screw was then placed followed by superior and inferior locking screws. A 36 mm eccentric glenosphere was then impacted into place. Surrounding soft tissues were then injected with 100 cc an orthopedic pain control cocktail. The proximal humerus was then exposed. Sequential broaching of the humerus up to a size 11 broach was done. Off that broach a +6 offset humeral tray was trialed. The shoulder was then reduced, brought through a full range of motion, and felt to be stable. The shoulder was then dislocated and the broach was removed. The final size 11 micro press-fit humeral stem was then impacted into place. A standard humeral bearing was then snapped onto a +6 offset humeral tray. The humeral tray was then impacted onto the humeral stem. The shoulder was once again reduced, brought through a full range of motion, and felt to be stable. Subscapularis was chronically retracted and unable to be repaired. Surgiphor Betadine soak was used throughout the case. Hemostasis was obtained. The interval was closed with 2-0 Vicryl suture. The skin was then closed with 2-0 Vicryl and mendez. A Silverlon dressing was placed and the arm was rested in a regular arm sling. She was then extubated and transferred to a hospital bed. She taken to the postanesthesia care unit in stable condition. She tolerated the procedure well. Onesimo Livingston PA-C, was present for the entire procedure. He was critical for patient positioning, prepping, draping, retraction exposure, wound closure and application of sterile dressing. I attest to the content of the Intraoperative Record and any orders documented therein. Any exceptions are noted below.
--- NOTE | 2023-02-06 12:00 | Anesthesiology Progress Note ---
Date of Service February 06, 2023 Anesthesia Post Procedure Vital Signs Vital Signs: Temp Pulse Resp BP Pulse Ox O2 Del Method O2 Flow Rate 02/06/23 11:55 80 16 122/78 94 Room Air 02/06/23 11:45 76 21 115/68 96 Oxymask 6 02/06/23 11:35 36 C L 97 H 16 131/81 98 Oxymask 6 02/06/23 09:30 36.9 C 69 20 126/80 98 Room Air Pain Intensity Right Shoulder: Pain Intensity: 2 Transfer of Care Handoff Completed per policy Notes Mental Status: alert / awake / arousable and participated in evaluation Patient Amnestic to Procedure: Yes Nausea / Vomiting: improving with treatment Pain: adequately controlled and improving with treatment Airway Patency, RR, SpO2: stable & adequate BP & HR: stable & adequate Hydration State: stable & adequate Anesthetic Complications: no major complications apparent and Pt Satisfied with anesthetic care Notes: Pt interscalene block is functioning well. Arm in sling
--- NOTE | 2023-02-06 12:07 | XRay Report ---
XR shoulder RT min 2V routine CLINICAL HISTORY: Post shoulder surgery TECHNIQUE: 2 views of the right shoulder were obtained. Comparison: None available at the time of this dictation. FINDINGS: Patient is status post shoulder arthroplasty with expected postsurgical changes including soft tissue swelling and subcutaneous emphysema. No periarticular lucency or hardware fracture is seen. IMPRESSION: Expected postoperative appearance status post placement of shoulder arthroplasty. ACT 112: Negative or not required by law. Electronically signed by: Tin Box M.D. 02/06/2023 12:05 PM
[2023-02-06] MEDS ORDERED: ONDANSETRON INJ 2 MG/ML 2 ML VIAL IV PRN (13:30)
[2023-02-06] MEDS ORDERED: NALOXONE HCL 0.4 MG/1 ML VIAL/CARP IV PRN (13:30)
[2023-02-06] MEDS ORDERED: oxyCODONE HCL IR 5 MG TAB (IMMEDIATE RELEASE) PO PRN (13:30)
[2023-02-06] MEDS ORDERED: MAGNESIUM HYDROXIDE SUSP 30 ML UDC PO PRN (13:30)
[2023-02-06] MEDS ORDERED: bisacodyL 10 MG SUPP PR PRN (13:30)
[2023-02-06] MEDS ORDERED: METOCLOPRAMIDE HCL INJ 5 MG/ML 2 ML VIAL IV PRN (13:30)
[2023-02-06] MEDS ORDERED: HYDROmorphone INJ 0.5 MG/0.5 ML SYR IV PRN (13:30)
[2023-02-06] MEDS: SODIUM CHLORIDE 0.9% 1000ML 1,000 ML IV SCH ×2 (13:50→23:22)
[2023-02-06] MEDS: ACETAMINOPHEN 500 MG TAB PO SCH ×2 (14:30→21:20)
[2023-02-06] MEDS: KETOROLAC TROMETHAMINE 15 MG/ML VIAL IV SCH ×2 (14:30→18:13)
[2023-02-06] MEDS: ceFAZolin 2000MG 2,000 MG/15 ML SYR IV SCH (18:13)
[2023-02-06] MEDS: DOCUSATE SODIUM 100 MG CAP PO SCH (19:58)
[2023-02-06] MEDS ORDERED: SENNA 8.6 MG TAB PO SCH (21:00)
[2023-02-06] MEDS ORDERED: ROSUVASTATIN CALCIUM 10 MG TAB PO SCH (21:00)
[2023-02-07] MEDS: KETOROLAC TROMETHAMINE 15 MG/ML VIAL IV SCH ×2 (00:43→05:58)
[2023-02-07] MEDS: ceFAZolin 2000MG 2,000 MG/15 ML SYR IV SCH (02:28)
[2023-02-07] MEDS: ACETAMINOPHEN 500 MG TAB PO SCH (05:58)
[2023-02-07] MEDS ORDERED: LEVOTHYROXINE SODIUM 50 MCG TABLET PO SCH (06:30)
[2023-02-07] MEDS ORDERED: dexAMETHasone 4 MG TAB PO SCH (08:00)
[2023-02-07] MEDS: DOCUSATE SODIUM 100 MG CAP PO SCH (08:03)
--- NOTE | 2023-02-07 08:44 | Orthopedic Progress Note ---
Date of Service February 07, 2023 Assessment & Plan (1) Status post reverse total replacement of right shoulder: Overall she is doing very well. She is not having much pain in the right shoulder. She will be seen by physical therapy today for ambulation and range of motion exercises. She can be discharged home later today. She will follow- up with orthopedics in 2 weeks. Sage Layton was seen and examined at bedside this morning. Overall she is doing very well. She is not having much pain in the right shoulder. She was able to get some sleep last night. She has no complaints.. Review of Systems All systems reviewed & are unremarkable except as noted in HPI & below. Physical Exam On physical examination of the right shoulder, the dressing is clean and dry. She is wearing her sling as instructed. The nerve block is still in effect.. Results & Data Results & Data Laboratory Results . Diagnostic Findings Postoperative x-rays of the right shoulder show the prosthesis to be in anatomic alignment without any evidence of fracture, dislocation, or loosening.. PG Care Time/CCT Total # of Minutes Spent Total Time Spent with Patient: Total time spent is greater than 50% in coordination of care (as documented) at patient's floor/unit and/or counseling patient: Coding Level of Care Code 44685 Post Operative Follow-Up Diagnoses Status post reverse total replacement of right shoulder Z96.611
--- NOTE | 2023-02-07 08:45 | Discharge Summary ---
Date of Service February 07, 2023 Principal Diagnosis Same as "Discharge Diagnosis" noted below under Discharge Instructions. Discharge Exam On physical examination of the right shoulder, the dressing is clean and dry. She is wearing her sling as instructed. The nerve block is still in effect.. Discharge Data Procedures Performed Operation Date: 02/06/23 10:00 Actual Procedures p Right Reverse Total Shoulder Arthroplasty(Right) - Onesimo Yee DO Ordered Studies 02/06/23 05:00 US - OR guided needle placemen Routine Hospital Course (1) Status post reverse total replacement of right shoulder: On February 06, 2023 Kinjal arrived at [facility] and underwent a right reverse shoulder replacement without complication. She had a general anesthetic and a right interscalene nerve block. Postoperatively she was placed in a sling and transferred to the general orthopedic floors. Her hospital course was uneventful. On postop day #1, her vital signs were stable and her pain was well controlled. She was able to participate well with physical therapy doing ambulation and range of motion exercises. She was then discharged home. She will follow-up with orthopedics in 2 weeks. PG Care Time/CCT Total # of Minutes Spent Total Time Spent with Patient: Total time spent is greater than 50% in coordination of care (as documented) at patient's floor/unit and/or counseling patient: Discharge Plan Discharge Items Patient Disposition: Home - Home Health Services Reason For Visit: DJD Right Shoulder Discharge Diagnosis: Right reverse shoulder replacement Activity: As commented below Non-emergency contact: Surgeon Call non-emergency contact if: your wound has increased redness and your wound has increased drainage Follow-up/Referrals: Marifer Altamirano CRNP [Primary Care Provider] - Diet: Regular Addtl Attending Provider Instructions: Activity and Therapy Recommendations: * If you are using [facility] then therapy will be provided at your home until they feel you have accomplished all of your goals. * If you are using [facility] then Physical Therapy will be provided until they feel you are ready to start Outpatient Physical Therapy. * If you are not using home therapy then Outpatient Physical Therapy should start about 3-5 days from your day of surgery. Therapy will last about 8-12 weeks * Wear your sling for 3 weeks, unless otherwise instructed. You may remove your sling to shower and to dress, but otherwise, you should be in your sling at all times, including while sleeping * The shoulder replacement is very stable and you can use your hand while in the sling * You were shown a series of exercises in the hospital. Do these exercises daily including the exercises you were shown in physical therapy. Medications: * Narcotic You will likely be sent home from the hospital with a prescription for the narcotic pain medication that worked best throughout your stay. * Other medications may be prescribed for specific circumstances. If you have any questions, please call the office at . * Resume previous home medications unless otherwise instructed Dressing Care: Leave the Silverlon dressing in place for 7 days. After 7 days you may remove t he dressing. If the incision is not draining then you may leave the mendez open to air. If there is a little bit of drainage or if the mendez are getting stuck on your clothing then cover the incision with a dry dressing. The mendez will be removed at your 2 week follow-up appointment. Showering: You may shower with the Silverlon dressing in place. Do not let the shower spray hit the dressing directly. Pat the Silverlon dressing dry. If the dressing becomes wet underneath, then simply remove the dressing. Keep the incision dry until you are 7 days out from the day of surgery. After 7 days you may remove the Silverlon dressing and shower with the mendez exposed. Let soapy water run over the mendez and pat them dry. Do not scrub or soak the incision. Things To Watch For: * Drainage from the incision site that occurs more than one week after your surgery. * Increased redness at the incision site. * Fever above 102 degrees Fahrenheit. * Unusual chest pain or shortness of breath. * Call [facility] at with any of the above problems Follow-Up Visit: Follow-up with Dr. Yee's PA (Onesimo Livingston) 2-3 weeks after your day of surgery. He will remove your mendez and answer any questions. If you have any additional questions or concerns, Dr Yee is usually in the office at the same time and will be available An appointment was probably scheduled when you signed-up for surgery in the office. If you have any questions call More detailed instructions as well as Frequently Asked Questions were provided in a folder by our office when you signed-up for surgery. Please review these instructions when you get home. If you have any further questions or concerns, please feel free to call the office at [phone] Pending Studies at Discharge: No Stand-Alone Forms: [facility], Smoking Cessation Medications and DC Order Prescriptions: New oxycodone 5 mg Tablet 5 mg PO Q4H PRN (Reason: pain) Qty: 30 0RF Continued clindamycin HCl 300 mg capsule 300 mg PO ONCE Qty: 2 0RF rosuvastatin 10 mg tablet 10 mg PO HS levothyroxine 50 mcg capsule 50 mcg PO QAM omega 4-[id number]-[id number]-fish oil [Fish Oil] 60-90-500 mg Capsule 2 cap PO DAILY multivitamin Tablet 1 tab PO QAM Vitamin C 100 mg Tablet 100 mg PO QAM calcium 220 mg Capsule 220 mg PO QAM Collagen Plus Vitamin C 125-740 mg Capsule 1 cap PO QAM Admission Data Admit Date/Time: 02/06/23 11:34 Attending Provider: Onesimo Yee Admit Provider: Onesimo Yee Primary Care Provider: Marifer Altamirano
[2023-02-07] MEDS ORDERED: MULTIVITAMIN TAB PO SCH (09:00)
== END 2023-02-07 10:13 | disposition home health service (06) ==
LOC: ASU 08:34 → 3W 08:34